=== PATIENT | male | born 1970 | race Caucasian/White ===

== ENCOUNTER 2021-06-08 11:11 | Emergency (ER) | payer OTHER ==
[~2021-06-08] VITALS: Ht 177.8 cm; Wt 149.7 kg
[2021-06-08 11:12] VITALS: BP 140/79
[2021-06-08] MEDS ORDERED: CIPROFLOXACIN HCL 0.2%/HYDROCORT 1% 10 ML OTIC SUSP OTIC SCH (12:00)
[2021-06-08] MEDS ORDERED: CEFTRIAXONE 1G VIAL IM ONE (12:00)
[2021-06-08] MEDS ORDERED: ACETAMINOPHEN 500 MG TABLET PO ONE (12:00)
[2021-06-08] MEDS ORDERED: KETOROLAC 60 MG VIAL (30MG/ML) IM ONE (12:00)
[2021-06-08] MEDS ORDERED: CIPR7.5D7 OT (12:06)
[2021-06-08] MEDS ORDERED: NAPR-1180 PO (12:06)
[2021-06-08] MEDS ORDERED: CIP750 PO (12:06)
[2021-06-08] MEDS ORDERED: LIDOCAINE HCL-MPF 1% 2ML VIAL ONE (12:10)
[2021-06-08 13:04] VITALS: BP 135/78
== END 2021-06-08 13:11 | disposition home or self-care (01) ==
LOC: EDH 11:11
DX: H60.91 Unspecified otitis externa, right ear (principal); H66.91 Otitis media, unspecified, right ear; I10 Essential (primary) hypertension; E11.9 Type 2 diabetes mellitus without complications; E66.9 Obesity, unspecified; Z88.5 Allergy status to narcotic agent; Z98.890 Other specified postprocedural states
CPT/HCPCS: 96372 ×2; 99284; J0696; J1885; J3490

== ENCOUNTER → 2022-01-16 | Outpatient (CLI) | payer OTHER ==
[~2022-01-16] MED LIST: CIPR7.5D7 OT; CIPR750T17 PO; NAPR-1180 PO
== END | disposition home or self-care (01) ==
LOC: RAH 10:00
PROVIDERS: ATTEND Family Medicine
DX: S83.242A Other tear of medial meniscus, current injury, left knee, initial encounter (principal); M23.92 Unspecified internal derangement of left knee; X58.XXXA Exposure to other specified factors, initial encounter; Y93.89 Activity, other specified; Y92.89 Other specified places as the place of occurrence of the external cause; Y99.8 Other external cause status
CPT/HCPCS: 73721

== ENCOUNTER → 2023-06-27 | Outpatient (CLI) | payer OTHER | END | disposition home or self-care (01) | LOC: RAH 10:08 | PROVIDERS: ATTEND Family Medicine | DX: Z13.6 Encounter for screening for cardiovascular disorders (principal) | CPT/HCPCS: 75571 ==

== ENCOUNTER 2024-08-11 06:48 | Day surgery (SDC) | payer BC ==
[~2024-08-11] VITALS: Ht 180.3 cm; Wt 156.0 kg
[2024-08-11] VITALS (10 sets, daily range): BP systolic 97–128; BP diastolic 52–83; PULSE 60–68; RESP 15–17; TEMP 97.4–97.8
[~2024-08-11 06:48] MED LIST changes: +0.9%NACL 1000ML 1,000 ML IV ONE
[2024-08-11] MEDS ORDERED: ROSU10TA72 PO (07:30)
[2024-08-11] MEDS ORDERED: ATEN1TAB3 PO (07:30)
[2024-08-11] MEDS ORDERED: ESCI20TA PO (07:32)
[2024-08-11] MEDS ORDERED: METF-445 PO (07:32)
[2024-08-11] MEDS ORDERED: DULA1.5P SQ (07:33)
[2024-08-11] MEDS ORDERED: ASPI-1197 PO (07:33)
[2024-08-11] MEDS ORDERED: proPOFol 10 MG/ML 20ML VIAL IV ONE ×2 (10:08→10:33)
== END 2024-08-11 11:27 | disposition home or self-care (01) ==
LOC: DAH 06:48 → ENDO 06:48
PROVIDERS: ATTEND Internal Medicine Gastroenterology
DX: Z12.11 Encounter for screening for malignant neoplasm of colon (principal); D12.8 Benign neoplasm of rectum; D12.5 Benign neoplasm of sigmoid colon; K64.1 Second degree hemorrhoids; K64.4 Residual hemorrhoidal skin tags; K74.01 Hepatic fibrosis, early fibrosis; D69.6 Thrombocytopenia, unspecified; K76.0 Fatty (change of) liver, not elsewhere classified; E11.9 Type 2 diabetes mellitus without complications; Z88.8 Allergy status to other drugs, medicaments and biological substances; E66.9 Obesity, unspecified; Z79.82 Long term (current) use of aspirin; Z98.84 Bariatric surgery status; Z68.42 Body mass index [BMI] 45.0-49.9, adult; Z79.84 Long term (current) use of oral hypoglycemic drugs; Z79.899 Other long term (current) drug therapy
CPT/HCPCS: 45380; 45385; J7030 ×2; J2704 ×2; A4620; A4657; A7002; J3490

== ENCOUNTER → 2024-08-14 | Outpatient (CLI) | payer BC ==
[~2024-08-14] MED LIST changes: -0.9%NACL 1000ML 1,000 ML IV ONE; +ASPI-1197 PO; +ATEN1TAB3 PO; -CIPR7.5D7 OT; -CIPR750T17 PO; +DULA1.5P SQ; +ESCI20TA PO; +METF-445 PO; -NAPR-1180 PO; +ROSU10TA72 PO
--- NOTE | 2024-08-14 10:40 | HMCIMG ---
US ABDOMEN CMP W DOPPLERS HISTORY: Elevated liver enzymes COMPARISON: None TECHNIQUE: Multiple transverse and longitudinal ultrasound images of the abdomen were obtained. Abdominal Doppler ultrasound study was performed. FINDINGS: Abdominal aorta and inferior vena cava are unremarkable. The visualized portion of the pancreas is within normal limits. Liver measures 20.4 cm. Nodular appearance is seen of the left hepatic lobe with ill-defined hypoechoic area adjacent to the gallbladder of questionable clinical significance. Liver is echogenic consistent with liver parenchymal disease. No gallstone is seen. Common duct measures 5 mm. No evidence of gallbladder wall thickening is seen. Both kidneys are seen. Right kidney measures 11.8 x 4.9 x 5.4 cm. Left kidney measures 14.3 x 5.7 x 4.6 cm. No hydronephrosis is seen of the both kidneys. Spleen is enlarged measuring 14.9 cm. The spleen is grossly unremarkable. Abdominal Doppler ultrasound study was performed. The portal vein is patent with hepatopedal flow with flow velocity of 12 cm/s. Flow velocity for left hepatic vein is 16 cm/s, middle hepatic vein is 17 cm/s, right hepatic vein is 50 cm/s and splenic vein is 13 cm/s. Hepatic artery is patent with peak systolic velocity of 78 cm/s and resistive index of 0 0.8. The study is limited due to patient's large body habitus. IMPRESSION: 1. No gallstone or ductal dilatation is seen. 2. No hydronephrosis is seen. 3. Unremarkable abdominal Doppler ultrasound study.
[2024-08-14 21:46] LABS: HEPATITIS B SURFACE ANTIBODY Negative (Reactive)
[2024-08-14 21:48] LABS: HEPATITIS B SURFACE ANTIGEN Non-Reactive (Nonreactive); HEPATITIS C ANTIBODY Non-Reactive (Nonreactive)
== END | disposition home or self-care (01) ==
LOC: RAH 09:21
PROVIDERS: ATTEND Internal Medicine Gastroenterology
DX: R74.01 Elevation of levels of liver transaminase levels (principal); D69.6 Thrombocytopenia, unspecified
CPT/HCPCS: 36415; 76700; 82728; 84466; 86706; 86708; 86803; 87340; 93975